=== PATIENT | female | born 1975 | race Caucasian/White ===

== ENCOUNTER → 2017-12-29 | Outpatient (CLI) | payer BC | LOC: OD 16:53 | PROVIDERS: ATTEND Specialist | DX: E66.01 Morbid (severe) obesity due to excess calories (principal); R53.83 Other fatigue | CPT/HCPCS: 36415; 83970 ==

== ENCOUNTER 2018-06-21 05:10 | Emergency (ER) | payer BC ==
[2018-06-21 06:15] LABS: ABSOLUTE EOSINOPHILS # (AUTO) 0.1 10^3/uL (0.0-0.6); ABSOLUTE LYMPHOCYTES (AUTO) 0.6 10^3/uL (0.5-4.7); ABSOLUTE MONOCYTES (AUTO) 0.5 10^3/uL (0.1-1.4); ABSOLUTE NEUT (AUTO) 4.5 10^3/uL (1.7-8.2); BASOPHILS % (AUTO) 0.7 % (0-2); HEMATOCRIT 31.7 % (36.0-47.0); LYMPHOCYTES % (AUTO) 10.5 % (13-45); MEAN CORPUSCULAR HGB CONC 31.5 g/dL (32.0-36.0); MEAN CORPUSCULAR VOLUME 70 fl (80-97); MONOCYTES % (AUTO) 9.3 % (3-13); PLATELET COUNT 250 10^3/uL (150-450); RED BLOOD COUNT 4.53 10^6/uL (3.72-5.28); RED CELL DISTRIBUTION WIDTH 19.2 % (11.5-14.0); SEGMENTED NEUTROPHILS % (AUTO) 77.5 % (42-78); TOTAL CELLS COUNTED % (AUTO) 100 %; WHITE BLOOD COUNT 5.9 10^3/uL (4.0-10.5)
[2018-06-21 06:36] LABS: ALANINE AMINOTRANSFERASE 87 U/L (9-52); ALBUMIN 3.9 g/dL (3.5-5.0); ALKALINE PHOSPHATASE 138 U/L (38-126); ANION GAP 10 (5-19); ASPARTATE AMINO TRANSFERASE 27 U/L (14-36); BILIRUBIN,DIRECT 0.2 mg/dL (0.0-0.4); BILIRUBIN,TOTAL 0.9 mg/dL (0.2-1.3); BLOOD UREA NITROGEN 14 mg/dL (7-20); CALCIUM 9.6 mg/dL (8.4-10.2); CARBON DIOXIDE 25 mmol/L (22-30); CHLORIDE 109 mmol/L (98-107); GLUCOSE 90 mg/dL (75-110); LIPASE 57.7 U/L (23-300); POTASSIUM 3.7 mmol/L (3.6-5.0); SODIUM 144.1 mmol/L (137-145); TOTAL PROTEIN 6.6 g/dL (6.3-8.2)
[2018-06-21 06:52] LABS: APPEARANCE,URINE CLEAR; BILIRUBIN,URINE NEGATIVE (NEGATIVE); COLOR,URINE YELLOW; GLUCOSE, URINE NEGATIVE (NEGATIVE); KETONES,URINE TRACE mg/dL (NEGATIVE); LEUKOCYTE ESTERASE,URINE NEGATIVE (NEGATIVE); NITRITE,URINE NEGATIVE (NEGATIVE); PROTEIN,URINE NEGATIVE (NEGATIVE); URINE SPECIFIC GRAVITY 1.026; UROBILINOGEN,URINE NEGATIVE mg/dL (<2.0)
[2018-06-21] MEDS ORDERED: ONDANSETRON HCL INJ/PF 4 MG/2 ML SDV IV ONE (07:00)
[2018-06-21] MEDS ORDERED: HYDROMORPHONE HCL INJ/PF 2 MG/ML AMPULE IV ONE ×2 (07:00→07:52)
--- NOTE | 2018-06-21 09:46 | RADIOLOGY REPORT (SQ) ---
EXAM DESCRIPTION: CT ABD/PELVIS WITH IV ORAL COMPLETED DATE/TIME: 06/21/2018 9:31 am REASON FOR STUDY: LUQ pain, s/p gastric bypass, also hematuria COMPARISON: None. TECHNIQUE: CT scan of the abdomen and pelvis performed using helical scanning technique with dynamic intravenous contrast injection. Patient drank oral contrast. Images reviewed with lung, soft tissue , and bone windows. Reconstructed coronal and sagittal MPR images reviewed. Delayed images for evalua tion of the urinary system also acquired. All images stored on PACS. All CT scanners at this facility use dose modulation, iterative reconstruction, and/or weight based d osing when appropriate to reduce radiation dose to as low as reasonably achievable (ALARA). [facility]: Dose Right [facility]: CareDose [facility]: Dose Right [facility]: Teradose 4D [facility]: [employer] CONTRAST TYPE AND DOSE: contrast/concentration: Isovue 350.00 mg/ml; Total Contrast Delivered: 100.0 ml; Total Saline Delivered: 70.0 ml RENAL FUNCTION: Creatinine 0.8 RADIATION DOSE: CT Rad equipment meets quality standard of care and radiation dose reduction techniq ues were employed. CTDIvol: 17.5 - 20.1 mGy. DLP: 2175 mGy-cm.. LIMITATIONS: None. FINDINGS: A 2 mm left proximal ureteral calculus is present at the level of the left L3 transverse p rocess. This is best shown on coronal image 42 and axial images 46-48. This stone causes high-grade urinary outflow obstruction, with moderate left hydronephrosis and a dense nephrogram on the post co ntrast delayed images indicating significant urinary outflow obstruction. No left renal cysts or masses. No other left ureteral stones. LOWER CHEST: No significant findings. No nodules or infiltrates. LIVER: Normal size. No masses. No dilated ducts. Focal fat at the falciform ligament SPLEEN: Normal size. No focal lesions. PANCREAS: No masses. No significant calcifications. No adjacent inflammation or peripancreatic fluid collections. Pancreatic duct not dilated. GALLBLADDER: Surgically absent ADRENAL GLANDS: No significant masses or asymmetry. RIGHT KIDNEY AND URETER: No solid masses. No significant calcifications. No hydronephrosis or hyd roureter. LEFT KIDNEY AND URETER: As above AORTA AND VESSELS: No aneurysm. No dissection. Renal arteries, SMA, celiac without stenosis. RETROPERITONEUM: No retroperitoneal adenopathy, hemorrhage or masses. BOWEL AND PERITONEAL CAVITY: Patient drank oral contrast. There is a gastric bypass present with sma ll hiatal hernia. Contrast is seen in nondilated small bowel loops. Few scattered colonic diverticu li without CT signs of acute diverticulitis. APPENDIX: Normal. Retrocecal location PELVIS: No mass. No free fluid. Normal bladder. 5 cm and 7 cm uterine fibroids. Normal size ovarie s ABDOMINAL WALL: No masses. No hernias. BONES: No significant or acute findings. OTHER: No other significant finding. IMPRESSION: 2 mm proximal left ureteral calculus causing high-grade left urinary outflow obstruction . TECHNICAL DOCUMENTATION: JOB ID: [id number] Quality ID # [id number]: Final reports with documentation of one or more dose reduction techniques (e.g., Au tomated exposure control, adjustment of the mA and/or kV according to patient size, use of iterative reconstruction technique) 2010 [employer]- All Rights Reserved Reading location - IP/workstation name: [email or web address]
[2018-06-21] MEDS ORDERED: KETOROLAC TROMETHAMINE INJ/PF 30 MG/1 ML SDV IV ONE (09:48)
[2018-06-21 11:16] VITALS: BP 121/56
--- NOTE | 2018-06-21 14:00 | ER Document Report ---
Entered by TO TEMPLETON SCRIBE 06/21/18 0700 Acting as scribe for:LINA BARRAZA DO ED GI/ - General Chief Complaint: Abdominal Pain Stated Complaint: ABDOMINAL PAIN Time Seen by Provider: 06/21/18 06:39 Primary Care Provider: LUIS E OWUSU MD [NO LOCAL MD] - Follow up as needed GAUTAM SANDOVAL MD [Primary Care Provider] - Follow up as needed Mode of Arrival: Ambulatory Notes: 43-year-old female status post Beth-en-Y surgery on January 27 2018 who presents to the emergency department today with complaints of left sided flank pain. Patient was recently admitted to [facility] for similar complaints a few days ago and had an extensive workup including multiple CT scans and an EGD. Patient was discharged home with what was interpreted as gastritis as the patient states there was "redness in the pouch" on her EGD. Patient has had some "liquidy" stools but denies dysuria, rash, or blood in vomit. TRAVEL OUTSIDE OF THE [place] IN LAST 30 DAYS: No - Related Data Allergies/Adverse Reactions: terbinafine [From Lamisil] Allergy (Intermediate, Verified 11/02/15 10:09) Generalized rash Past Medical History - General Information source: Patient - Social History Smoking Status: Never Smoker Cigarette use (# per day): No Chew tobacco use (# tins/day): No Frequency of alcohol use: Rare Drug Abuse: None Lives with: Family Family History: Reviewed & Not Pertinent, Other - Sr. with venous thromboembolic disease. Patient has suicidal ideation: No Patient has homicidal ideation: No - Past Medical History Cardiac Medical History: Reports: Hx Hypertension - BORDERLINE Endocrine Medical History: Reports: Hx Diabetes Mellitus Type 2 - Borderline Psychiatric Medical History: Reports: Hx Depression Past Surgical History: Reports: Hx Cholecystectomy, Hx Gastric Bypass Surgery - Beth-en-Y, Hx Tonsillectomy - and addenoidectomy - Immunizations Hx Diphtheria, Pertussis, Tetanus Vaccination: Yes Review of Systems - Review of Systems Constitutional: No symptoms reported EENT: No symptoms reported Cardiovascular: No symptoms reported Respiratory: No symptoms reported Gastrointestinal: See HPI, Abdominal pain, Other - Left flank pain. "liquidy" stool.. denies: Blood in vomit Genitourinary: denies: Dysuria, Hematuria Female Genitourinary: No symptoms reported Musculoskeletal: No symptoms reported Skin: No symptoms reported Hematologic/Lymphatic: No symptoms reported Neurological/Psychological: No symptoms reported -: Yes All other systems reviewed and negative Physical Exam - Vital signs Vitals: Temp Pulse Resp BP Pulse Ox 98.4 F 82 28 H 134/74 H 98 06/21/18 05:24 06/21/18 05:24 06/21/18 05:24 06/21/18 05:24 06/21/18 05:24 - Notes Notes: PHYSICAL EXAM GENERAL: Alert, interacts well. Appears uncomfortable. Overweight. HEAD: Normocephalic, atraumatic. EYES: Pupils equal, round, and reactive to light. Extraocular movements intact. ENT: Oral mucosa moist, tongue midline. NECK: Full range of motion. Supple. Trachea midline. LUNGS: Clear to auscultation bilaterally, no wheezes, rales, or rhonchi. No respiratory distress. HEART: Regular rate and rhythm. No murmurs, gallops, or rubs. ABDOMEN: Soft, epigastric and left upper quadrant tenderness with palpation. Non-distended. Bowel sounds present in all 4 quadrants. No guarding, rigidity, or rebound. BACK: Left CVA tenderness to percussion. EXTREMITIES: Moves all 4 extremities spontaneously. No edema, radial and dorsalis pedis pulses 2/4 bilaterally. No cyanosis. NEUROLOGICAL: Alert and oriented x3. Normal speech. PSYCH: Normal affect, normal mood. SKIN: Warm, dry, normal turgor. No rashes or lesions noted. Course - Re-evaluation Re-evalutation: 06/21/18 10:47 CBC shows anemia with hemoglobin 9.2, d-dimer is negative, CBC shows chronic anemia with hemoglobin of 10, platelets normal, no leukocytosis, CMP shows sl ightly elevated AST and alkaline phosphatase LT and alkaline phosphatase otherwise unremarkable, lipase normal, test negative, urinalysis shows trace ketones and small blood, CT scan of the abdomen pelvis was undertaken, given her history of Beth-en-Y patient did have IV and oral contrast given, the scan did identify a 2 mm left proximal ureteral stone with high-grade urinary outflow obstruction with moderate left hydronephrosis, no other acute findings were identified, 06/21/18 10:47 Patient will be discharged to home with pain medication, Flomax, Zofran and Phenergan. No NSAIDs will be used after single dose of Toradol given her history of gastric bypass surgery. Discharged home and recommend follow-up with urology. - Vital Signs Vital signs: Temp Pulse Resp BP Pulse Ox 98.9 F 68 15 121/56 L 99 06/21/18 11:09 06/21/18 11:09 06/21/18 11:09 06/21/18 11:09 06/21/18 11:09 - Laboratory Result Diagrams: 06/21/18 06:00 06/21/18 06:00 Laboratory results interpreted by me: 06/21/18 06/21/18 06/21/18 06:00 06:00 06:34 Hgb 10.0 L Hct 31.7 L MCV 70 L MCH 22.0 L MCHC 31.5 L RDW 19.2 H Lymphocytes % 10.5 L Chloride 109 H ALT 87 H Alkaline Phosphatase 138 H Urine Ketones TRACE H Urine Blood SMALL H Discharge - Discharge Clinical Impression: Left ureteral calculus Condition: Stable Disposition: HOME, SELF-CARE Additional Instructions: Kidney Stone You are passing or have passed a kidney stone. These stones are usually due to increased calcium or uric acid concentrations in your urine. Stones within the kidney itself are not painful. The pain occurs as the stone leaves the kidney to pass down the long tube, called the ureter, leading to the bladder. If the stone is small, it will usually pass by itself. Most patients can pass the stone at home. You will usually receive medications for pain, nausea or vomiting, and sometimes a medication to assist in passing the kidney stone. However, if the pain is very severe or if vomiting prevents you from taking oral pain medications, you may need to return for further treatment. Drink three or four quarts of fluids per day. You will be given pain medic ation (if needed) and urine strainers. Strain all your urine to see if the stone passes. If your doctor has asked you to bring the stone in for analysis, return with the stone once it has passed. Return if pain or vomiting become severe, if you develop a high fever, if you are unable to pass your urine, or if other unusual symptoms occur. Prescriptions: Hydrocodone/Acetaminophen [[place] 5-325 mg Tablet] 1 tab PO Q4HP PRN #14 tablet PRN Reason: Ondansetron [Zofran Odt 4 mg Tablet] 1 - 2 tab PO Q4HP PRN #10 tab.rapdis PRN Reason: Phenazopyridine HCl [Pyridium 200 mg Tablet] 200 mg PO TID #15 tablet Promethazine HCl [Phenergan 25 mg Tablet] 25 - 50 mg PO ASDIR PRN #12 tablet PRN Reason: Tamsulosin HCl [Flomax 0.4 mg Cap.sr] 0.4 mg PO DAILY #7 cap.sr.24h Forms: Return to Work Referrals: GAUTAM SANDOVAL MD [Primary Care Provider] - Follow up as needed LUIS E OWUSU MD [NO LOCAL MD] - Follow up as needed I personally performed the services described in the documentation, reviewed and edited the documentation which was dictated to the scribe in my presence, and it accurately records my words and actions.
== END 2018-06-21 11:16 | disposition home or self-care (01) ==
LOC: ER 05:10
DX: N13.2 Hydronephrosis with renal and ureteral calculous obstruction (principal); R10.9 Unspecified abdominal pain; R10.816 Epigastric abdominal tenderness; R10.812 Left upper quadrant abdominal tenderness; R19.4 Change in bowel habit; D64.9 Anemia, unspecified; R74.0 Nonspecific elevation of levels of transaminase and lactic acid dehydrogenase [LDH]; R74.8 Abnormal levels of other serum enzymes; Z98.84 Bariatric surgery status; Z90.49 Acquired absence of other specified parts of digestive tract
CPT/HCPCS: 96376; 99284; 96374; 96375; 36415; 83690; 84703; 85025; 80053; 81001; 74177; J1885; J1170; J2405

== ENCOUNTER → 2018-07-06 | Outpatient (CLI) | payer BC ==
[2018-07-06 13:56] LABS: HEMATOCRIT 32.1 % (36.0-47.0); HEMOGLOBIN 10.1 g/dL (12.0-15.5); MEAN CORPUSCULAR HEMOGLOBIN 21.8 pg (27.0-33.4); MEAN CORPUSCULAR HGB CONC 31.4 g/dL (32.0-36.0); MEAN CORPUSCULAR VOLUME 69 fl (80-97); PLATELET COUNT 327 10^3/uL (150-450); RED BLOOD COUNT 4.64 10^6/uL (3.72-5.28); RED CELL DISTRIBUTION WIDTH 18.4 % (11.5-14.0); WHITE BLOOD COUNT 5.8 10^3/uL (4.0-10.5)
[2018-07-06 14:15] LABS: ALANINE AMINOTRANSFERASE 21 U/L (9-52); ALBUMIN 4.1 g/dL (3.5-5.0); ALKALINE PHOSPHATASE 73 U/L (38-126); ANION GAP 11 (5-19); ASPARTATE AMINO TRANSFERASE 16 U/L (14-36); BILIRUBIN,DIRECT 0.2 mg/dL (0.0-0.4); BILIRUBIN,TOTAL 0.7 mg/dL (0.2-1.3); BLOOD UREA NITROGEN 15 mg/dL (7-20); CALCIUM 9.7 mg/dL (8.4-10.2); CARBON DIOXIDE 25 mmol/L (22-30); CHLORIDE 109 mmol/L (98-107); CHOLESTEROL 184.25 mg/dL (0-200); GLUCOSE 86 mg/dL (75-110); IRON 22.9 ug/dL (37-170); TOTAL PROTEIN 6.9 g/dL (6.3-8.2); TRIGLYCERIDES 88 mg/dL (<150)
[2018-07-06 14:40] LABS: DIRECT LDL 109 mg/dL (<100)
== END ==
LOC: OD 13:17
PROVIDERS: ATTEND Specialist
DX: K91.2 Postsurgical malabsorption, not elsewhere classified (principal); R63.4 Abnormal weight loss; R53.83 Other fatigue; E55.9 Vitamin D deficiency, unspecified
CPT/HCPCS: 36415; 80053; 80061; 82306; 82607; 83036; 83540; 83970; 84443; 85027

== ENCOUNTER → 2018-10-23 | Outpatient (CLI) | payer BC ==
[2018-10-23 10:33] LABS: HEMATOCRIT 24.4 % (36.0-47.0); MEAN CORPUSCULAR HEMOGLOBIN 17.3 pg (27.0-33.4); MEAN CORPUSCULAR HGB CONC 29.2 g/dL (32.0-36.0); PLATELET COUNT 300 10^3/uL (150-450); RED BLOOD COUNT 4.12 10^6/uL (3.72-5.28); RED CELL DISTRIBUTION WIDTH 18.2 % (11.5-14.0); WHITE BLOOD COUNT 5.1 10^3/uL (4.0-10.5)
[2018-10-23 10:41] LABS: IRON 13.5 ug/dL (37-170)
[2018-10-23 11:16] LABS: FERRITIN 3.09 ng/mL (6.2-137.0)
[2018-10-23 12:00] LABS: MEAN CORPUSCULAR VOLUME 59 fl (80-97)
[2018-10-23 12:08] LABS: HEMOGLOBIN 7.1 g/dL (12.0-15.5)
[2018-10-24 15:31] LABS: PATH REVIEW PATHOLOGIST REVIEWED
== END ==
LOC: OD 09:54
PROVIDERS: ATTEND Specialist
DX: K91.2 Postsurgical malabsorption, not elsewhere classified (principal); D64.9 Anemia, unspecified; R63.4 Abnormal weight loss; R79.9 Abnormal finding of blood chemistry, unspecified
CPT/HCPCS: 36415; 82330; 82728; 83540; 83970; 85027

== ENCOUNTER → 2019-01-24 | Outpatient (CLI) | payer BC ==
[2019-01-24 10:31] LABS: MEAN CORPUSCULAR HEMOGLOBIN 24.9 pg (27.0-33.4); MEAN CORPUSCULAR HGB CONC 32.3 g/dL (32.0-36.0); MEAN CORPUSCULAR VOLUME 77 fl (80-97); PLATELET COUNT 277 10^3/uL (150-450); RED BLOOD COUNT 4.41 10^6/uL (3.72-5.28); RED CELL DISTRIBUTION WIDTH 22.7 % (11.5-14.0); WHITE BLOOD COUNT 5.7 10^3/uL (4.0-10.5)
[2019-01-24 10:53] LABS: ALBUMIN 4.1 g/dL (3.5-5.0); ALKALINE PHOSPHATASE 55 U/L (38-126); ANION GAP 8 (5-19); ASPARTATE AMINO TRANSFERASE 19 U/L (14-36); BILIRUBIN,DIRECT 0.1 mg/dL (0.0-0.4); BILIRUBIN,TOTAL 0.4 mg/dL (0.2-1.3); BLOOD UREA NITROGEN 15 mg/dL (7-20); CALCIUM 9.5 mg/dL (8.4-10.2); CARBON DIOXIDE 25 mmol/L (22-30); CHLORIDE 108 mmol/L (98-107); CHOLESTEROL 173.51 mg/dL (0-200); GLUCOSE 76 mg/dL (75-110); POTASSIUM 4.7 mmol/L (3.6-5.0); TOTAL PROTEIN 6.8 g/dL (6.3-8.2); TRIGLYCERIDES 102 mg/dL (<150)
[2019-01-24 11:04] LABS: DIRECT LDL 97 mg/dL (<100)
[2019-01-24 11:28] LABS: FERRITIN 4.62 ng/mL (6.2-137.0)
== END ==
LOC: OD 10:01
PROVIDERS: ATTEND Physician Assistant Surgical
DX: E46 Unspecified protein-calorie malnutrition (principal); K91.2 Postsurgical malabsorption, not elsewhere classified; D64.9 Anemia, unspecified; R63.4 Abnormal weight loss
CPT/HCPCS: 36415; 80053; 80061; 82306; 82607; 82728; 82746; 83036; 83540; 83735; 83970; 84425; 84443; 85027

== ENCOUNTER → 2019-04-10 | Outpatient (CLI) | payer BC ==
[2019-04-10 08:15] LABS: ABSOLUTE MONOCYTES (AUTO) 0.4 10^3/uL (0.1-1.4); ABSOLUTE NEUT (AUTO) 2.5 10^3/uL (1.7-8.2); BASOPHILS % (AUTO) 0.9 % (0-2); EOSINOPHILS % (AUTO) 1.2 % (0-6); HEMATOCRIT 26.5 % (36.0-47.0); HEMOGLOBIN 8.2 g/dL (12.0-15.5); LYMPHOCYTES % (AUTO) 24.6 % (13-45); MEAN CORPUSCULAR HEMOGLOBIN 20.2 pg (27.0-33.4); MEAN CORPUSCULAR VOLUME 65 fl (80-97); PLATELET COUNT 268 10^3/uL (150-450); RED BLOOD COUNT 4.07 10^6/uL (3.72-5.28); SEGMENTED NEUTROPHILS % (AUTO) 62.3 % (42-78); TOTAL CELLS COUNTED % (AUTO) 100 %
[2019-04-10 08:45] LABS: ALKALINE PHOSPHATASE 57 U/L (38-126); ANION GAP 6 (5-19); ASPARTATE AMINO TRANSFERASE 22 U/L (14-36); BILIRUBIN,DIRECT 0.1 mg/dL (0.0-0.4); BILIRUBIN,TOTAL 1.1 mg/dL (0.2-1.3); BLOOD UREA NITROGEN 13 mg/dL (7-20); CALCIUM 9.2 mg/dL (8.4-10.2); CARBON DIOXIDE 29 mmol/L (22-30); CHLORIDE 103 mmol/L (98-107); GLUCOSE 87 mg/dL (75-110); IRON(TIBC) 22.9 ug/dL (37-170); POTASSIUM 4.3 mmol/L (3.6-5.0); TOTAL PROTEIN 6.8 g/dL (6.3-8.2); TRIGLYCERIDES 54 mg/dL (<150)
[2019-04-10 08:56] LABS: DIRECT LDL 101 mg/dL (<100)
[2019-04-10 09:20] LABS: FERRITIN 3.89 ng/mL (6.2-137.0)
[2019-04-12 07:46] LABS: SELENIUM WHOLE BLOOD 173 ug/L (100-340)
== END ==
LOC: OD 07:15
PROVIDERS: ATTEND Family Medicine
DX: D50.0 Iron deficiency anemia secondary to blood loss (chronic) (principal); E53.8 Deficiency of other specified B group vitamins; Z98.84 Bariatric surgery status
CPT/HCPCS: 36415; 80053; 80061; 82306; 82525; 82607; 82728; 83540; 83550; 84255; 84630; 85025

== ENCOUNTER 2019-06-28 11:41 | Emergency (ER) | payer BC ==
--- NOTE | 2019-06-28 12:00 | ER Document Report ---
ED Medical Screen (RME) - General Chief Complaint: Abnormal Lab Results Stated Complaint: ABNORMAL LABS Time Seen by Provider: 06/28/19 11:51 Primary Care Provider: ANNALEE ALONZO MD [Primary Care Provider] - Follow up as needed Mode of Arrival: Ambulatory Information source: Patient Notes: 44 female with history of anemia due to history of uterine fibroids with heavy menses. Presents to the emergency department with low H&H. Patient had labs drawn this morning at [facility] with H&H of 6.6/22.5 at 9:00 this morning. Reports she has had transfusion when she was a child. Denies other symptoms such as fever vomiting diarrhea. Reports she has been eating ice more which is typical when her H&H gets low. She also reports she feels little short of breath and is a little tachy. Two units PRB's ordered. Consulted Dr. hanson who agrees with 2 units PRBC. I have greeted and performed a rapid initial assessment of this patient. A comprehensive ED assessment and evaluation of the patient, analysis of test results and completion of the medical decision making process will be conducted by additional ED providers. TRAVEL OUTSIDE OF THE [place] IN LAST 30 DAYS: No - Related Data Allergies/Adverse Reactions: terbinafine [From Lamisil] Allergy (Intermediate, Verified 11/02/15 10:09) Generalized rash Past Medical History - Past Medical History Cardiac Medical History: Reports: Hx Hypertension - BORDERLINE Denies: Hx Coronary Artery Disease, Hx Heart Attack Pulmonary Medical History: Denies: Hx Asthma, Hx Bronchitis, Hx COPD, Hx Pneumonia Neurological Medical History: Denies: Hx Cerebrovascular Accident, Hx Seizures Endocrine Medical History: Reports: Hx Diabetes Mellitus Type 2 - Borderline Renal/ Medical History: Denies: Hx Peritoneal Dialysis Musculoskeltal Medical History: Denies Hx Arthritis Psychiatric Medical History: Reports: Hx Depression Past Surgical History: Reports: Hx Cholecystectomy, Hx Gastric Bypass Surgery - Beth-en-Y, Hx Tonsillectomy - and addenoidectomy. Denies: Hx Hysterectomy - Immunizations Hx Diphtheria, Pertussis, Tetanus Vaccination: Yes Physical Exam - Vital signs Vitals: Temp Pulse BP Pulse Ox 97.9 F 107 H 127/58 H 100 06/28/19 11:45 06/28/19 11:45 06/28/19 11:45 06/28/19 11:45 Course - Vital Signs Vital signs: Temp Pulse Resp BP Pulse Ox 97.9 F 107 H 127/58 H 100 06/28/19 11:51 06/28/19 11:45 06/28/19 11:45 06/28/19 11:45 Doctor's Discharge - Discharge Referrals: ANNALEE ALONZO MD [Primary Care Provider] - Follow up as needed
[2019-06-28] MEDS ORDERED: NORMAL SALINE 250 ML IV PRN (12:06)
--- NOTE | 2019-06-28 12:22 | ER Document Report ---
ED General - General Chief Complaint: Abnormal Lab Results Stated Complaint: ABNORMAL LABS Time Seen by Provider: 06/28/19 11:51 Primary Care Provider: ANNALEE ALONZO MD [Primary Care Provider] - Follow up as needed Mode of Arrival: Ambulatory Information source: Patient Notes: triage note Pt reports to ED for an abnormal lab. The pt had her blood drawn this morning. They called her and told her to go to the ED because her hemoglobin was 6.6 and that she need a blood transfusion. The pt reports feeling weaker than usual. The pt has anemia due to heavy mensural cycle d/t fibroids. The pt is currently on her menstrual cycle. The pt is aox4. Resps even and unlabored. pats notes 44 female with history of anemia due to history of uterine fibroids with heavy menses. Presents to the emergency department with low H&H. Patient had labs drawn this morning at [facility] with H&H of 6.6/22.5 at 9:00 this morning. Reports she has had transfusion when she was a child. Denies other symptoms such as fever vomiting diarrhea. Reports she has been eating ice more which is typical when her H&H gets low. She also reports she feels little short of breath and is a little tachy. Two units PRB's ordered. Consulted Dr. hanson who agrees with 2 units PRBC. 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 Burton because she was having tachycardia and feeling very tired all week and her H&H returned at 6.6 hemoglobin. Patient has a history of heavy menstrual bleeding for several years and she is a pica eater ice. Patient remembers mbers receiving 4 units of blood when she was 7 years old after having it tonsillecto my and bleeding out in the ambulance bay.." Patient reports she is on her menstrual flow for the last 2 days. She is using a pad at this time. She reports she has heavy menses as a rule. Patient reports she had a Beth-Pool RN Y gastric revision on [address] Cedeno in [place] did this. Patient usually gets iron infusions per Dr. Villalobos to or Dr. Mclean.. "But the coronavirus pandemic in the beginning of 2019 has brought this to an end." TRAVEL OUTSIDE OF THE [place] IN LAST 30 DAYS: No - Related Data Allergies/Adverse Reactions: terbinafine [From Lamisil] Allergy (Intermediate, Verified 11/02/15 10:09) Generalized rash Past Medical History - General Information source: Patient - Social History Smoking Status: Never Smoker Family History: Reviewed & Not Pertinent, Other - Sr. with venous thromboembolic disease. Patient has homicidal ideation: No - Past Medical History Cardiac Medical History: Reports: Hx Hypertension - BORDERLINE Denies: Hx Coronary Artery Disease, Hx Heart Attack Pulmonary Medical History: Denies: Hx Asthma, Hx Bronchitis, Hx COPD, Hx Pneumonia Neurological Medical History: Denies: Hx Cerebrovascular Accident, Hx Seizures Endocrine Medical History: Reports: Hx Diabetes Mellitus Type 2 - Borderline Renal/ Medical History: Denies: Hx Peritoneal Dialysis Musculoskeletal Medical History: Denies Hx Arthritis Psychiatric Medical History: Reports: Hx Depression Past Surgical History: Reports: Hx Cholecystectomy, Hx Gastric Bypass Surgery - Beth-en-Y, Hx Tonsillectomy - and addenoidectomy. Denies: Hx Hysterectomy - Immunizations Hx Diphtheria, Pertussis, Tetanus Vaccination: Yes Review of Systems - Review of Systems Constitutional: No symptoms reported, Malaise, Weakness EENT: No symptoms reported Cardiovascular: See HPI, Palpitations, Orthopnea, Dizziness Respiratory: No symptoms reported Gastrointestinal: See HPI, Abdominal pain Genitourinary: No symptoms reported Female Genitourinary: No symptoms reported Musculoskeletal: No symptoms reported Skin: No symptoms reported Hematologic/Lymphatic: No symptoms reported Neurological/Psychological: No symptoms reported Physical Exam - Vital signs Vitals: Temp Pulse BP Pulse Ox 97.9 F 107 H 127/58 H 100 06/28/19 11:45 06/28/19 11:45 06/28/19 11:45 06/28/19 11:45 Interpretation: Tachycardic - General General appearance: Alert - HEENT Head: Normocephalic, Atraumatic Eyes: Normal Pupils: PERRL Course - Vital Signs Vital signs: Temp Pulse Resp BP Pulse Ox 97.9 F 107 H 127/58 H 100 06/28/19 11:51 06/28/19 11:45 06/28/19 11:45 06/28/19 11:45 - Laboratory Result Diagrams: 06/28/19 12:55 06/28/19 12:55 Laboratory results interpreted by me: 06/28/19 06/28/19 06/28/19 12:55 12:55 13:13 Sodium 136.9 L Urine Blood MODERATE H Crossmatch See Detail - Diagnostic Test Radiology reviewed: Reports reviewed - EKG Interpretation by Me EKG shows normal: Sinus rhythm Rate: Normal Rhythm: NSR Critical Care Note - Critical Care Note Total time excluding time spent on procedures (mins): 90 Comments: I discussed this case with patient with Bette RN in the room. I advised her to follow-up with wheel press clerk who she has had the opportunity to be scoped in the past by him. Discharge - Discharge Clinical Impression: Blood transfusion, without reported diagnosis, Tachycardia Anemia Qualifiers: Anemia type: unspecified type Qualified Code(s): D64.9 - Anemia, unspecified Condition: Good Disposition: HOME, SELF-CARE Additional Instructions: Follow-up with wheel press clerk of choice return to ER as needed take medicines as directed encourage fluids; take Carafate as directed and also Pepcid and Prilosec as directed. Prescriptions: Sucralfate [Carafate 1 gm Tablet] 1 gm PO ACHS #120 tablet Famotidine [Pepcid 20 mg Tablet] 20 mg PO BID #12 tablet Omeprazole Magnesium [Prilosec Otc] 20 mg PO DAILY #1 bottle Referrals: ANNALEE ALONZO MD [Primary Care Provider] - Follow up as needed
[2019-06-28 13:29] LABS: ABSOLUTE BASOPHILS # (AUTO) 0.1 10^3/uL (0.0-0.2); ABSOLUTE EOSINOPHILS # (AUTO) 0.1 10^3/uL (0.0-0.6); ABSOLUTE LYMPHOCYTES (AUTO) 1.3 10^3/uL (0.5-4.7); ABSOLUTE MONOCYTES (AUTO) 0.7 10^3/uL (0.1-1.4); ABSOLUTE NEUT (AUTO) 3.8 10^3/uL (1.7-8.2); EOSINOPHILS % (AUTO) 1.7 % (0-6); HEMATOCRIT 21.7 % (36.0-47.0); LYMPHOCYTES % (AUTO) 22.3 % (13-45); MEAN CORPUSCULAR HEMOGLOBIN 16.6 pg (27.0-33.4); MEAN CORPUSCULAR HGB CONC 29.4 g/dL (32.0-36.0); MEAN CORPUSCULAR VOLUME 57 fl (80-97); MONOCYTES % (AUTO) 11.5 % (3-13); PLATELET COUNT 347 10^3/uL (150-450); RED BLOOD COUNT 3.84 10^6/uL (3.72-5.28); RED CELL DISTRIBUTION WIDTH 18.4 % (11.5-14.0); SEGMENTED NEUTROPHILS % (AUTO) 63.5 % (42-78); TOTAL CELLS COUNTED % (AUTO) 100 %
[2019-06-28 13:38] LABS: APPEARANCE,URINE CLEAR; BILIRUBIN,URINE NEGATIVE (NEGATIVE); COLOR,URINE YELLOW; GLUCOSE, URINE NEGATIVE (NEGATIVE); KETONES,URINE NEGATIVE (NEGATIVE); LEUKOCYTE ESTERASE,URINE NEGATIVE (NEGATIVE); NITRITE,URINE NEGATIVE (NEGATIVE); PROTEIN,URINE NEGATIVE (NEGATIVE); URINE SPECIFIC GRAVITY 1.011; UROBILINOGEN,URINE NEGATIVE mg/dL (<2.0)
--- NOTE | 2019-06-28 13:38 | RADIOLOGY REPORT (SQ) ---
EXAM DESCRIPTION: CT ABD/PELVIS WITH IV ONLY IMAGES COMPLETED DATE/TIME: 06/28/2019 1:25 pm REASON FOR STUDY: abd pain dyan en Y COMPARISON: 06/21/2018 TECHNIQUE: CT scan of the abdomen and pelvis performed using helical scanning technique with dynamic intravenous contrast injection. No oral contrast. Images reviewed with lung, soft tissue, and bone windows. Reconstructed coronal and sagittal MPR images reviewed. Delayed images for evaluation of the urinary system also acquired. All images stored on PACS. All CT scanners at this facility use dose modulation, iterative reconstruction, and/or weight based d osing when appropriate to reduce radiation dose to as low as reasonably achievable (ALARA). [facility]: Dose Right [facility]: CareDose [facility]: Dose Right [facility]: Teradose 4D [facility]: [employer] CONTRAST TYPE AND DOSE: contrast/concentration: Isovue 350.00 mg/ml; Total Contrast Delivered: 100.0 ml; Total Saline Delivered: 55.3 ml RENAL FUNCTION: None required. The patient is less than 50 years old. RADIATION DOSE: CT Rad equipment meets quality standard of care and radiation dose reduction techniq ues were employed. CTDIvol: NaN - NaN mGy. DLP: 0 mGy-cm.. LIMITATIONS: None. FINDINGS: LOWER CHEST: No significant findings. No nodules or infiltrates. LIVER: Normal size. No masses. No dilated ducts. SPLEEN: Normal size. No focal lesions. PANCREAS: No masses. No significant calcifications. No adjacent inflammation or peripancreatic fluid collections. Pancreatic duct not dilated. GALLBLADDER: Surgically absent. ADRENAL GLANDS: No significant masses or asymmetry. RIGHT KIDNEY AND URETER: No solid masses. No significant calcifications. No hydronephrosis or hyd roureter. LEFT KIDNEY AND URETER: No solid masses. No significant calcifications. No hydronephrosis or hydr oureter. AORTA AND VESSELS: No aneurysm. No dissection. Renal arteries, SMA, celiac without stenosis. RETROPERITONEUM: No retroperitoneal adenopathy, hemorrhage or masses. BOWEL AND PERITONEAL CAVITY: Postsurgical changes in the epigastric region. No inflammation. No bow el wall thickening. No obstruction. APPENDIX: Normal. PELVIS: Small right adnexal lesion consistent with ovarian cyst. Fibroid uterus. ABDOMINAL WALL: No masses. No hernias. BONES: No significant or acute findings. OTHER: No other significant finding. IMPRESSION: 1. Fibroid uterus stable from prior exam. 2. Small right adnexal lesion consistent with ovarian cyst. This measures 2.3 cm. 3. No other significant findings in the abdomen or pelvis. TECHNICAL DOCUMENTATION: JOB ID: [id number] Quality ID # [id number]: Final reports with documentation of one or more dose reduction techniques (e.g., Au tomated exposure control, adjustment of the mA and/or kV according to patient size, use of iterative reconstruction technique) 2010 [employer]- All Rights Reserved Reading location - IP/workstation name: [email or web address]
[2019-06-28 13:48] LABS: ALBUMIN 3.9 g/dL (3.5-5.0); ALKALINE PHOSPHATASE 53 U/L (38-126); ASPARTATE AMINO TRANSFERASE 20 U/L (14-36); BILIRUBIN,TOTAL 0.7 mg/dL (0.2-1.3); BLOOD UREA NITROGEN 16 mg/dL (7-20); CARBON DIOXIDE 27 mmol/L (22-30); CHLORIDE 105 mmol/L (98-107); GLUCOSE 85 mg/dL (75-110); POTASSIUM 4.4 mmol/L (3.6-5.0); TOTAL PROTEIN 6.4 g/dL (6.3-8.2)
[2019-06-28 13:56] LABS: ANION GAP 5 (5-19)
[2019-06-28 14:00] LABS: HEMOGLOBIN 6.4 g/dL (12.0-15.5)
[2019-06-28 14:03] LABS: HYPOCHROMASIA 3+; POLYCHROMASIA SLIGHT
[2019-06-28 14:04] LABS: ANISOCYTOSIS 1+; OVALOCYTES 1+; PLATELET LARGE PRESENT; POIKILOCYTOSIS 1+; TARGET CELLS SLIGHT; TEAR DROP CELLS SLIGHT
[2019-06-28 14:05] LABS: PLATELET COMMENT ADEQUATE
[2019-06-28 18:34] VITALS: BP 121/71
--- NOTE | 2019-06-28 21:26 | EKG REPORT ---
SEVERITY:- BORDERLINE ECG - SINUS RHYTHM BORDERLINE T WAVE ABNORMALITIES : Confirmed by: Luis Armando Orlando MD 28-Jun-2019 21:25:25
== END 2019-06-28 18:35 | disposition home or self-care (01) ==
LOC: ER 11:41
DX: D64.9 Anemia, unspecified (principal); R00.0 Tachycardia, unspecified; R73.03 Prediabetes; I10 Essential (primary) hypertension; Z90.49 Acquired absence of other specified parts of digestive tract; Z98.84 Bariatric surgery status
CPT/HCPCS: 93005; 99285; 86900; 86901; 36415; 36430; 86850; 84703; 80053; 81001; 84484; 86920; 74177; 93010; P9016

== ENCOUNTER → 2019-06-28 | Outpatient (CLI) | payer BC ==
[2019-06-28 09:53] LABS: ABSOLUTE BASOPHILS # (AUTO) 0.1 10^3/uL (0.0-0.2); ABSOLUTE EOSINOPHILS # (AUTO) 0.1 10^3/uL (0.0-0.6); ABSOLUTE LYMPHOCYTES (AUTO) 1.5 10^3/uL (0.5-4.7); ABSOLUTE MONOCYTES (AUTO) 0.5 10^3/uL (0.1-1.4); ABSOLUTE NEUT (AUTO) 3.1 10^3/uL (1.7-8.2); BASOPHILS % (AUTO) 1.3 % (0-2); EOSINOPHILS % (AUTO) 1.5 % (0-6); HEMATOCRIT 22.5 % (36.0-47.0); LYMPHOCYTES % (AUTO) 28.1 % (13-45); MEAN CORPUSCULAR HEMOGLOBIN 16.7 pg (27.0-33.4); MEAN CORPUSCULAR HGB CONC 29.2 g/dL (32.0-36.0); PLATELET COUNT 351 10^3/uL (150-450); RED BLOOD COUNT 3.95 10^6/uL (3.72-5.28); RED CELL DISTRIBUTION WIDTH 18.5 % (11.5-14.0); SEGMENTED NEUTROPHILS % (AUTO) 59.1 % (42-78); TOTAL CELLS COUNTED % (AUTO) 100 %; WHITE BLOOD COUNT 5.3 10^3/uL (4.0-10.5)
[2019-06-28 10:13] LABS: IRON(TIBC) 16.3 ug/dL (37-170)
[2019-06-28 10:34] LABS: ANISOCYTOSIS 2+; HYPOCHROMASIA 3+; POIKILOCYTOSIS 1+; POLYCHROMASIA SLIGHT
[2019-06-28 10:35] LABS: OVALOCYTES 1+; SCHISTOCYTES SLIGHT; TEAR DROP CELLS 1+
[2019-06-28 10:37] LABS: PLATELET COMMENT ADEQUATE
[2019-06-28 10:40] LABS: HEMOGLOBIN 6.6 g/dL (12.0-15.5); MEAN CORPUSCULAR VOLUME 57 fl (80-97)
[2019-06-28 10:48] LABS: FERRITIN 2.72 ng/mL (6.2-137.0)
== END ==
LOC: OD 08:36
PROVIDERS: ATTEND Family Medicine
DX: D50.0 Iron deficiency anemia secondary to blood loss (chronic) (principal)
CPT/HCPCS: 36415; 82728; 83540; 83550; 85025

== ENCOUNTER → 2019-10-31 | Outpatient (CLI) | payer BC ==
[2019-10-31 14:29] LABS: ABSOLUTE BASOPHILS # (AUTO) 0.1 10^3/uL (0.0-0.2); ABSOLUTE EOSINOPHILS # (AUTO) 0.1 10^3/uL (0.0-0.6); ABSOLUTE LYMPHOCYTES (AUTO) 1.4 10^3/uL (0.5-4.7); ABSOLUTE MONOCYTES (AUTO) 0.6 10^3/uL (0.1-1.4); ABSOLUTE NEUT (AUTO) 2.3 10^3/uL (1.7-8.2); BASOPHILS % (AUTO) 1.6 % (0-2); EOSINOPHILS % (AUTO) 2.3 % (0-6); HEMATOCRIT 21.9 % (36.0-47.0); LYMPHOCYTES % (AUTO) 32.1 % (13-45); MEAN CORPUSCULAR HEMOGLOBIN 15.6 pg (27.0-33.4); MEAN CORPUSCULAR HGB CONC 28.9 g/dL (32.0-36.0); MEAN CORPUSCULAR VOLUME 54 fl (80-97); MONOCYTES % (AUTO) 12.5 % (3-13); PLATELET COUNT 302 10^3/uL (150-450); RED BLOOD COUNT 4.05 10^6/uL (3.72-5.28); RED CELL DISTRIBUTION WIDTH 19.2 % (11.5-14.0); SEGMENTED NEUTROPHILS % (AUTO) 51.5 % (42-78); TOTAL CELLS COUNTED % (AUTO) 100 %; WHITE BLOOD COUNT 4.4 10^3/uL (4.0-10.5)
[2019-10-31 14:55] LABS: ANISOCYTOSIS 2+; HYPOCHROMASIA 3+; OVALOCYTES 3+; POIKILOCYTOSIS 2+; POLYCHROMASIA 1+; SCHISTOCYTES SLIGHT; TARGET CELLS SLIGHT
[2019-10-31 14:58] LABS: PLATELET CLUMPS PRESENT; PLATELET COMMENT ADEQUATE; TEAR DROP CELLS 1+
[2019-10-31 15:16] LABS: HEMOGLOBIN 6.3 g/dL (12.0-15.5)
[2019-10-31 15:55] LABS: FERRITIN 2.85 ng/mL (6.2-137.0)
[2019-10-31 15:59] LABS: IRON(TIBC) < 10.1 ug/dL (37-170)
== END ==
LOC: LAB 13:53
PROVIDERS: ATTEND Family Medicine
DX: D50.0 Iron deficiency anemia secondary to blood loss (chronic) (principal)
CPT/HCPCS: 36415; 82728; 83540; 83550; 85025

== ENCOUNTER 2019-11-01 08:30 | Emergency (ER) | payer BC ==
[2019-11-01 09:46] LABS: ABSOLUTE EOSINOPHILS # (AUTO) 0.1 10^3/uL (0.0-0.6); ABSOLUTE LYMPHOCYTES (AUTO) 1.3 10^3/uL (0.5-4.7); ABSOLUTE MONOCYTES (AUTO) 0.4 10^3/uL (0.1-1.4); ABSOLUTE NEUT (AUTO) 1.4 10^3/uL (1.7-8.2); BASOPHILS % (AUTO) 1.5 % (0-2); EOSINOPHILS % (AUTO) 2.2 % (0-6); HEMATOCRIT 21.8 % (36.0-47.0); LYMPHOCYTES % (AUTO) 39.8 % (13-45); MEAN CORPUSCULAR HEMOGLOBIN 15.5 pg (27.0-33.4); MEAN CORPUSCULAR HGB CONC 28.1 g/dL (32.0-36.0); MEAN CORPUSCULAR VOLUME 55 fl (80-97); MONOCYTES % (AUTO) 13.1 % (3-13); PLATELET COUNT 297 10^3/uL (150-450); RED BLOOD COUNT 3.94 10^6/uL (3.72-5.28); RED CELL DISTRIBUTION WIDTH 19.4 % (11.5-14.0); SEGMENTED NEUTROPHILS % (AUTO) 43.4 % (42-78); TOTAL CELLS COUNTED % (AUTO) 100 %; WHITE BLOOD COUNT 3.2 10^3/uL (4.0-10.5)
[2019-11-01 09:52] LABS: HEMOGLOBIN 6.1 g/dL (12.0-15.5)
[2019-11-01 10:05] LABS: ANISOCYTOSIS 2+; PLATELET COMMENT ADEQUATE
[2019-11-01 10:06] LABS: HYPOCHROMASIA 2+; OVALOCYTES 2+; POIKILOCYTOSIS 2+
[2019-11-01 10:08] LABS: SCHISTOCYTES SLIGHT; TARGET CELLS SLIGHT
[2019-11-01 10:13] LABS: ALKALINE PHOSPHATASE 53 U/L (38-126); ANION GAP 7 (5-19); ASPARTATE AMINO TRANSFERASE 22 U/L (14-36); BILIRUBIN,DIRECT 0.2 mg/dL (0.0-0.4); BILIRUBIN,TOTAL 0.9 mg/dL (0.2-1.3); BLOOD UREA NITROGEN 13 mg/dL (7-20); CALCIUM 8.9 mg/dL (8.4-10.2); CARBON DIOXIDE 24 mmol/L (22-30); CHLORIDE 106 mmol/L (98-107); GLUCOSE 89 mg/dL (75-110); POTASSIUM 4.5 mmol/L (3.6-5.0); TOTAL PROTEIN 6.3 g/dL (6.3-8.2)
[2019-11-01] MEDS ORDERED: NORMAL SALINE 250 ML IV PRN ×2 (10:20)
--- NOTE | 2019-11-01 10:22 | ER Document Report ---
ED General - General Chief Complaint: Anemia Stated Complaint: ABNORMAL LABS Time Seen by Provider: 11/01/19 09:45 Primary Care Provider: [facility] [Provider Group] - Follow up as needed HO SUÁREZ MD [ACTIVE STAFF] - 11/04/19 ANNALEE ALONZO MD [Primary Care Provider] - Follow up as needed Mode of Arrival: Ambulatory Information source: Patient Notes: Patient presents complaining of palpitations with exertion. Patient reports fatigue over the past week. Patient reports that she is pale. Patient had outpatient lab work yesterday from her primary doctor's office and was advised to come here for blood transfusion due to anemia. Patient does report heavy menses due to uterine fibroids. Patient is not currently on her menstrual cycle. Patient also reports gastric bypass surgery 2 years ago. Patient denies any blood in the stool or dark-colored stools. TRAVEL OUTSIDE OF THE [place] IN LAST 30 DAYS: No - HPI Onset: Last week Onset/Duration: Persistent Pain Level: Denies Associated symptoms: Shortness of breath. denies: Chest pain, Nonproductive cough, Productive cough, Fever, Nausea, Vomiting Exacerbated by: Denies Relieved by: Denies Similar symptoms previously: Yes Recently seen / treated by doctor: Yes - Related Data Allergies/Adverse Reactions: terbinafine [From Lamisil] Allergy (Intermediate, Verified 11/02/15 10:09) Generalized rash Past Medical History - General Information source: Patient - Social History Smoking Status: Never Smoker Chew tobacco use (# tins/day): No Frequency of alcohol use: None Drug Abuse: None Occupation: Patient experience motor coach bus driver Family History: Reviewed & Not Pertinent, Other - Sr. with venous thromboembolic disease. - Past Medical History Cardiac Medical History: Reports: Hx Hypertension - BORDERLINE Neurological Medical History: Denies: Hx Cerebrovascular Accident, Hx Seizures Endocrine Medical History: Reports: Hx Diabetes Mellitus Type 2 - Borderline Renal/ Medical History: Denies: Hx Peritoneal Dialysis Musculoskeletal Medical History: Denies Hx Arthritis Psychiatric Medical History: Reports: Hx Depression Past Surgical History: Reports: Hx Cholecystectomy, Hx Gastric Bypass Surgery - [place], Hx Tonsillectomy - and addenoidectomy. Denies: Hx Hysterectomy - Immunizations Hx Diphtheria, Pertussis, Tetanus Vaccination: Yes Review of Systems - Review of Systems Constitutional: Other - Fatigue. denies: Fever, Recent illness EENT: No symptoms reported Cardiovascular: Palpitations. denies: Chest pain Respiratory: Short of breath - With exertion Gastrointestinal: No symptoms reported. denies: Abdominal pain, Black stools, Rectal bleeding Genitourinary: No symptoms reported Female Genitourinary: No symptoms reported Musculoskeletal: No symptoms reported Skin: Other - Pale Hematologic/Lymphatic: No symptoms reported Neurological/Psychological: No symptoms reported Physical Exam - Vital signs Vitals: Temp Pulse Resp BP Pulse Ox 98.4 F 91 15 125/63 100 11/01/19 08:33 11/01/19 08:33 11/01/19 08:33 11/01/19 08:33 11/01/19 08:33 - Notes Notes: PHYSICAL EXAMINATION: GENERAL: Well-appearing and in no acute distress. HEAD: Atraumatic, normocephalic. EYES: sclera anicteric, conjunctiva are normal. ENT: nares patent. Moist mucous membranes. NECK: Normal range of motion, supple without lymphadenopathy LUNGS: CTAB and equal. No wheezes rales or rhonchi. HEART: Regular rate and rhythm without murmurs ABDOMEN: Soft, nontender EXTREMITIES: Normal range of motion, no pitting edema. No cyanosis. BACK: No CVA tenderness NEUROLOGICAL: Cranial nerves grossly intact. Normal speech. Normal gait. PSYCH: Normal mood, normal affect. SKIN: Pale, warm, Dry, normal turgor, no rashes or lesions noted Course - Re-evaluation Re-evalutation: 11/01/19 10:[address] Suárez regarding patient presentation and her diagnostic evaluation. Dr. Keys advises giving a single unit of packed red blood cells and having her follow-up in the office to get set up for an outpatient iron transfusion. - Vital Signs Vital signs: Temp Pulse Resp BP Pulse Ox 98.6 F 76 18 125/55 L 100 11/01/19 13:23 11/01/19 13:23 11/01/19 14:28 11/01/19 14:29 11/01/19 14:28 - Laboratory Result Diagrams: 11/01/19 09:12 11/01/19 09:12 Laboratory results interpreted by me: 11/01/19 11/01/19 11/01/19 09:12 09:12 09:12 WBC 3.2 L Hgb 6.1 L Hct 21.8 L MCV 55 L MCH 15.5 L MCHC 28.1 L RDW 19.4 H Parmer % (Auto) 13.1 H Absolute Neuts (auto) 1.4 L Sodium 136.7 L Crossmatch See Detail 11/01/19 10:22 Labs- All tests 24 hr 11/01/19 11/01/19 11/01/19 09:12 09:12 09:12 WBC 3.2 L RBC 3.94 Hgb 6.1 L Hct 21.8 L MCV 55 L MCH 15.5 L MCHC 28.1 L RDW 19.4 H Plt Count 297 Lymph % (Auto) 39.8 Parmer % (Auto) 13.1 H Eos % (Auto) 2.2 Baso % (Auto) 1.5 Absolute Neuts (auto) 1.4 L Absolute Lymphs (auto) 1.3 Absolute Monos (auto) 0.4 Absolute Eos (auto) 0.1 Absolute Basos (auto) 0.0 Seg Neutrophils % 43.4 Platelet Comment ADEQUATE Hypochromasia 2+ Poikilocytosis 2+ Anisocytosis 2+ Microcytosis 4+ Target Cells SLIGHT Ovalocytes 2+ Schistocytes SLIGHT Sodium 136.7 L Potassium 4.5 Chloride 106 Carbon Dioxide 24 Anion Gap 7 BUN 13 Creatinine 0.66 Est GFR ( Amer) > 60 Est GFR (MDRD) Non-Af > 60 Glucose 89 Calcium 8.9 Total Bilirubin 0.9 Direct Bilirubin 0.2 Neonat Total Bilirubin Not Reportable Neonat Direct Bilirubin Not Reportable Neonat Indirect Bili Not Reportable AST 22 ALT 19 Alkaline Phosphatase 53 Total Protein 6.3 Albumin 4.0 Blood Type A NEGATIVE Antibody Screen NEGATIVE Crossmatch See Detail Reviewed patient's outpatient lab work that was performed yesterday - EKG Interpretation by Ut EKG shows normal: Sinus rhythm Rate: Normal When compared to previous EKG there are: No significant change Additional EKG results interpreted by me: 11/01/19 10:22 Sinus rhythm with a rate of 80, QTc 434, no significant change when compared to prior EKG Discharge - Discharge Clinical Impression: Anemia Qualifiers: Anemia type: iron deficiency Iron deficiency anemia type: unspecified iron deficiency Qualified Code(s): D50.9 - Iron deficiency anemia, unspecified Condition: Stable Disposition: HOME, SELF-CARE Instructions: Anemia, Iron Deficiency ([facility]) Additional Instructions: Return immediately for any new or worsening symptoms Followup with your primary care provider, call tomorrow to make a followup appointment Follow-up with Dr. Campuzano for an outpatient infusion of iron, call today to make a follow-up appointment Follow-up with credit clerk for further evaluation of heavy menses Forms: Return to Work Referrals: ANNALEE ALONZO MD [Primary Care Provider] - Follow up as needed HO SUÁREZ MD [ACTIVE STAFF] - 11/04/19 [facility] [Provider Group] - Follow up as needed
[2019-11-01 14:32] VITALS: BP 125/55
--- NOTE | 2019-11-01 16:45 | EKG REPORT ---
SEVERITY:- BORDERLINE ECG - SINUS RHYTHM BORDERLINE T WAVE ABNORMALITIES : Confirmed by: Mazin Damon MD 01-Nov-2019 16:44:53
== END 2019-11-01 14:32 | disposition home or self-care (01) ==
LOC: ER 08:30
DX: D50.9 Iron deficiency anemia, unspecified (principal); D25.9 Leiomyoma of uterus, unspecified; N92.0 Excessive and frequent menstruation with regular cycle; R00.2 Palpitations; R53.83 Other fatigue; R06.02 Shortness of breath; Z98.84 Bariatric surgery status; Z88.3 Allergy status to other anti-infective agents
CPT/HCPCS: 93005; 99285; 86900; 86901; 36415; 36430; 86850; 85025; 80053; 86920; 93010; P9016; J7050

== ENCOUNTER 2019-12-13 12:56 | Outpatient (CLI) | payer BC ==
[~2019-12-13 12:56] MED LIST: FERUMOXYTOL (NON-ESRD) 510 MG/NS 100 ML IV PRN; NORMAL SALINE 250 ML IV PRN
[2019-12-13 13:19] VITALS: BP 123/104
== END 2019-12-13 14:23 | disposition home or self-care (01) ==
LOC: II 12:56 → 5TH 12:59 → II 14:23
PROVIDERS: ATTEND Internal Medicine
DX: D50.9 Iron deficiency anemia, unspecified (principal)
CPT/HCPCS: 96365; Q0138; J7050

== ENCOUNTER 2019-12-20 12:55 | Outpatient (CLI) | payer BC ==
[~2019-12-20 12:55] MED LIST changes: -FERUMOXYTOL (NON-ESRD) 510 MG/NS 100 ML IV PRN; +FERUMOXYTOL 510 MG in NORMAL SALINE 100 ML IV PRN
[2019-12-20 13:49] VITALS: BP 117/60
== END 2019-12-20 13:51 | disposition home or self-care (01) ==
LOC: II 12:55 → 5TH 12:57 → II 13:51
PROVIDERS: ATTEND Internal Medicine
DX: D50.8 Other iron deficiency anemias (principal); K90.9 Intestinal malabsorption, unspecified
CPT/HCPCS: 96365; Q0138; J7050

== ENCOUNTER → 2020-02-07 | Outpatient (CLI) | payer BC ==
[~2020-02-07] MED LIST changes: +COVID-19 VACCINE (PFIZER)/PF 30 MCG/0.3 ML VIAL IM ONE; +EPINEPHRINE INJ/PF 1 MG/1 ML AMPULE IM PRN; -FERUMOXYTOL 510 MG in NORMAL SALINE 100 ML IV PRN; -NORMAL SALINE 250 ML IV PRN
== END ==
LOC: EMPHEALTH 14:24
PROVIDERS: ATTEND Internal Medicine
DX: Z23 Encounter for immunization (principal)
CPT/HCPCS: 91300

== ENCOUNTER → 2020-02-28 | Outpatient (CLI) | payer BC | LOC: EMPHEALTH 13:53 | PROVIDERS: ATTEND Internal Medicine | DX: Z23 Encounter for immunization (principal) | CPT/HCPCS: 91300 ==

== ENCOUNTER → 2020-03-05 | Outpatient (CLI) | payer BC ==
[2020-03-05 15:30] LABS: ABSOLUTE BASOPHILS # (AUTO) 0.1 10^3/uL (0.0-0.2); ABSOLUTE EOSINOPHILS # (AUTO) 0.1 10^3/uL (0.0-0.6); ABSOLUTE LYMPHOCYTES (AUTO) 1.4 10^3/uL (0.5-4.7); ABSOLUTE MONOCYTES (AUTO) 0.5 10^3/uL (0.1-1.4); ABSOLUTE NEUT (AUTO) 3.2 10^3/uL (1.7-8.2); HEMATOCRIT 26.5 % (36.0-47.0); HEMOGLOBIN 8.2 g/dL (12.0-15.5); LYMPHOCYTES % (AUTO) 26.1 % (13-45); MEAN CORPUSCULAR HEMOGLOBIN 20.1 pg (27.0-33.4); MEAN CORPUSCULAR HGB CONC 30.9 g/dL (32.0-36.0); MEAN CORPUSCULAR VOLUME 65 fl (80-97); MONOCYTES % (AUTO) 9.4 % (3-13); PLATELET COUNT 267 10^3/uL (150-450); RED BLOOD COUNT 4.07 10^6/uL (3.72-5.28); RED CELL DISTRIBUTION WIDTH 22.6 % (11.5-14.0); SEGMENTED NEUTROPHILS % (AUTO) 61.5 % (42-78); TOTAL CELLS COUNTED % (AUTO) 100 %; WHITE BLOOD COUNT 5.2 10^3/uL (4.0-10.5)
[2020-03-05 15:45] LABS: ALKALINE PHOSPHATASE 54 U/L (38-126); ASPARTATE AMINO TRANSFERASE 21 U/L (14-36); BILIRUBIN,DIRECT 0.1 mg/dL (0.0-0.4); BILIRUBIN,TOTAL 0.4 mg/dL (0.2-1.3); BLOOD UREA NITROGEN 17 mg/dL (7-20); GLUCOSE 55 mg/dL (75-110); IRON(TIBC) 18.2 ug/dL (37-170); POTASSIUM 4.6 mmol/L (3.6-5.0); TOTAL PROTEIN 6.6 g/dL (6.3-8.2)
[2020-03-05 15:51] LABS: CARBON DIOXIDE 28 mmol/L (22-30); CHLORIDE 105 mmol/L (98-107)
[2020-03-05 16:19] LABS: FERRITIN 3.67 ng/mL (6.2-137.0)
[2020-03-05 16:23] LABS: ANION GAP 2 (5-19)
== END ==
LOC: OD 14:04
PROVIDERS: ATTEND Internal Medicine
DX: D50.8 Other iron deficiency anemias (principal); K90.9 Intestinal malabsorption, unspecified
CPT/HCPCS: 36415; 80053; 82728; 83540; 83550; 85025